=== PATIENT | male | born 1985 | race African-American/Black ===

== ENCOUNTER 2017-10-08 21:03 | Emergency (ER) | payer MEDICAID, OTHER ==
[~2017-10-08 21:03] MED LIST: Z.0.NO CURRENT MEDS
[2017-10-08 21:05] VITALS: BP 144/86; PULSE 76; RESP 14; TEMP 98.6; O2SAT 98
[2017-10-08] MEDS ORDERED: SODIUM CHLOR 0.9% 1000 ML INJ 1,000 ML IV ONE (21:30)
[2017-10-08] MEDS ORDERED: MORPHINE SULFATE 2 MG/ML INJ IV PUSH ONE (21:30)
[2017-10-08] MEDS ORDERED: ONDANSETRON HCL 4 MG/2 ML VIAL IV PUSH ONE (21:30)
[2017-10-08 21:39] LABS: AUTOMATED NEUTROPHIL # 8.3 TH/MM3 (1.8-7.7); BASOPHIL # 0.1 TH/MM3 (0-0.2); BASOPHIL % 0.5 % (0.0-2.0); EOSINOPHIL # 0.1 TH/MM3 (0-0.4); EOSINOPHIL % 0.7 % (0.0-4.0); HEMATOCRIT 42.7 % (39.0-51.0); HEMOGLOBIN 14.7 GM/DL (13.0-17.0); LYMPH % 15.2 % (9.0-44.0); LYMPHOCYTE # 1.6 TH/MM3 (1.0-4.8); MEAN CELL VOLUME 79.5 FL (80.0-100.0); MEAN CORPUSCULAR HEMOGLOBIN 27.4 PG (27.0-34.0); MEAN CORPUSCULAR HGB CONC 34.5 % (32.0-36.0); MEAN PLATELET VOLUME 10.2 FL (7.0-11.0); MONO % 6.3 % (0.0-8.0); MONOCYTE # 0.7 TH/MM3 (0-0.9); NEUT % 77.3 % (16.0-70.0); PLATELET COUNT 178 TH/MM3 (150-450); RED BLOOD COUNT 5.37 MIL/MM3 (4.50-5.90); RED CELL DISTRIBUTION WIDTH 13.9 % (11.6-17.2); WHITE BLOOD COUNT 10.7 TH/MM3 (4.0-11.0)
[2017-10-08] MEDS ORDERED: IOHEXOL 350 MG/ML 10 ML VIAL (for RAD DIAG) IVCONTRAST ONE (21:42)
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
[2017-10-08 21:53] LABS: BICARBONATE 28.9 MEQ/L (21.0-32.0); CALCIUM 8.5 MG/DL (8.5-10.1); CREATININE 1.23 MG/DL (0.60-1.30)
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
[2017-10-08] MEDS ORDERED: HYDR-3516 PO (22:17)
[2017-10-08] MEDS ORDERED: DICL75TA PO (22:17)
== END 2017-10-08 23:30 | disposition home or self-care (01) ==
LOC: NEPE 21:03
DX: S09.90XA Unspecified injury of head, initial encounter (principal); T14.8XXA Other injury of unspecified body region, initial encounter; S80.11XA Contusion of right lower leg, initial encounter; K21.9 Gastro-esophageal reflux disease without esophagitis; F17.210 Nicotine dependence, cigarettes, uncomplicated; V49.50XA Passenger injured in collision with unspecified motor vehicles in traffic accident, initial encounter
CPT/HCPCS: 70450; 71260; 72125; 73552; 73590; 74177; 80048; 85025; 96374; 96375; 99285; E0113; J2270; J2405; J7030; Q9967